=== PATIENT | female | born 1965 | race Caucasian/White ===

== ENCOUNTER 2025-07-19 09:54 | Emergency (ER) | payer SELFPAY ==
[2025-07-19 10:35] LABS: #Basophils 0.09 10x3/uL (0.0-0.2); #Eosinophils 0.11 10x3/uL (0.0-0.5); #Monocytes 0.45 10x3/uL (0.0-1.1); #Neutrophils 6.42 10x3/uL (1.5-8.4); %Basophils 1.1 % (0.0-2.0); %Eosinophils 1.3 % (0.0-6.0); %Lymphocytes 15.2 % (18.0-47.0); %Monocytes 5.4 % (0.0-10.0); %Neutrophils 76.6 % (40.0-75.0); Hematocrit 40.6 % (34.9-44.5); Hemoglobin 13.0 g/dL (12.0-15.5); Mean Corpuscular Hemoglobin 31.5 pg (27.0-33.0); Mean Corpuscular Volume 98.3 fL (81.6-98.3); Platelet Count 698 10x3/uL (150-450); Red Blood Cell (RBC) Count 4.13 10x6/uL (3.90-5.03); White Blood Cell (WBC) Count 8.37 10x3/uL (3.5-10.5)
[2025-07-19 10:51] LABS: Acetaminophen Less than 10 mcg/mL (Less than 10); Lipase 18 U/L (8-78); Magnesium 1.7 mg/dL (1.6-2.6); Salicylate 21.2 mg/dL (Less than 8.0)
[2025-07-19 10:52] LABS: ALT (SGPT) 14 U/L (Less than 34); AST (SGOT) 16 U/L (11-34); Albumin 3.5 g/dL (3.1-4.5); Alkaline Phosphatase 87 U/L (40-110); Anion Gap 15 mmol/L (10-20); BUN (Urea Nitrogen) 7 mg/dL (9.8-20.1); Bilirubin, Total 0.2 mg/dL (0.3-1.2); CK (CPK) 28 U/L (29-168); Calc. Creatinine Clearance 0 mL/min (70-130); Calcium 8.8 mg/dL (7.8-10.44); Carbon Dioxide 22 mmol/L (23-31); Chloride 108 mmol/L (98-107); Globulin 3.3 g/dL (2.4-3.5); Glucose 101 mg/dL (80-115); Potassium 3.7 mmol/L (3.5-5.1); Sodium 141 mmol/L (136-145)
[2025-07-19 10:54] LABS: Troponin I Less than 0.010 ng/mL (< 0.028)
[2025-07-19 11:02] LABS: Glucose, Urine (Dipstick) Normal (Negative); Leukocyte 25 (Negative); Protein, Urine (Dipstick) Negative (Neg-Trace); Specific Gravity, Urine 1.010 (1.005-1.030)
[2025-07-19 11:11] LABS: Cocaine Metabolite Screen Negative (Negative); THC/Cannabinoid Screen Negative (Negative); Tricyclic Screen Negative (Negative)
[2025-07-19 11:16] LABS: CAUTI Indications for Culture Pelvic or flank pain; RBC/HPF 0-3 HPF (0-3); WBC/HPF 0-3 HPF (0-3)
[2025-07-19 11:17] LABS: Urine Culture Reflex No No
== END 2025-07-19 12:37 | disposition home or self-care (01) ==
LOC: CJX 09:54 → CSHERS 12:37
DX: R07.89 Other chest pain (principal); R00.0 Tachycardia, unspecified; M79.10 Myalgia, unspecified site; K21.9 Gastro-esophageal reflux disease without esophagitis; I10 Essential (primary) hypertension; E03.9 Hypothyroidism, unspecified; Z79.899 Other long term (current) drug therapy; Z79.890 Hormone replacement therapy
CPT/HCPCS: 36415; 71045; 80053; 80306; 80307; 81001; 82550; 83605; 83690; 83735; 84443; 84484; 85025; 85379; 87428; 93005; 96374; J2272